=== PATIENT | male | born 1955 | race Caucasian/White ===

== ENCOUNTER → 2023-11-09 | Day surgery (SDC) | payer MEDICARE, OTHER ==
[~2023-11-09] MED LIST: Diatrizoate Meglumine/Diatrizoate Sodium 37% 30 ML Bottle PO ONE; Iopamidol 755 Mg/ML 100 ML Bottle IV SCH; Lactated Ringers 1,000 ML IV SCH; Lidocaine 2% 5 ML SDV INJECT ONE; Lidocaine 2% 5 ML SDV ONE; Midazolam 1 MG/ML 2 ML SDV IV ONE; Propofol 200 MG/20 ML SDV IV ONE; Sodium Chloride 0.9% 10 ML Syringe FLUSH PRN
[2023-11-09 11:53] LABS: CREATININE 1.1 mg/dL (0.70-1.30); EST CRCL DRUG DOSING (CG) 72.65 mL/min
== END | disposition home or self-care (01) ==
LOC: FB.SDS 06:56
PROVIDERS: ATTEND Surgery
DX: K29.50 Unspecified chronic gastritis without bleeding (principal); K21.9 Gastro-esophageal reflux disease without esophagitis; E78.5 Hyperlipidemia, unspecified; D64.9 Anemia, unspecified; Z79.899 Other long term (current) drug therapy
CPT/HCPCS: 00731; 36415; 74178; 82565; 88305; 88342; J2250; J2704; J7120; Q9963; Q9967